=== PATIENT | female | born 1960 | race Caucasian/White ===

== ENCOUNTER 2017-08-20 00:03 | Observation (INO) | payer OTHER ==
--- NOTE | 2017-08-20 01:06 | PDOC ---
History of Present Illness - General Chief Complaint: Psychiatric Stated Complaint: ANXIETY Time Seen by Provider: 08/20/17 00:47 History Source: Patient, Parent(s) - History of Present Illness Initial Comments: 08/20/17 04:04 56-year-old female brought in by ambulance from home, patient with no eye contact and refusing to talk. Denies SI/HI. As per EMS the brother called 911 due to some disturbance. Brother was not available to talk via phone. as per parents, patient with visual and auditory hallucinations with multiple admissions to [facility]. Parents suspect that the patient has not been taking her psychiatric medications. most recent psych admission has been at [facility]. Patient appears internally preoccupied. Patient reports "I am talking to the God ". patient reports that she is only taking GAbapentin. \\ 08/20/17 04:20 Past History - Past Medical History Allergies/Adverse Reactions: Allergies Allergy/AdvReac Type Severity Reaction Status Date / Time No Known Allergies Allergy Verified 08/20/17 01:24 Home Medications: Ambulatory Orders Acetaminophen W/ Codeine #3 [Tylenol # 3] 1 combo PO Q6H #20 tablet 10/09/11 Other medical history: schizophrenia - Suicide/Smoking/Psychosocial Hx Smoking Status: No Smoking History: Never smoked Number of Cigarettes Smoked Daily: 0 Review of Systems - Review of Systems Able to Perform ROS?: Yes Is the patient limited Italian proficient: No Constitutional: No: Symptoms Reported, See HPI, Chills, Diaphoresis, Fever, Loss of Appetite, Malaise, Night Sweats, Weakness, Weight Stable, Unintentional Wgt. Loss, Unexplained wgt Loss, Other Neurological: No: Symptoms reported, See HPI, Headache, Numbness, Paresthesia, Pre-Existing Deficit, Seizure, Tingling, Tremors, Weakness, Unsteady Gait, Ataxia, Dizziness, Other Psychiatric: Yes: Sleep Pattern Change, Other (hallucination) *Physical Exam - Vital Signs 08/20/17 04:08 Last Vital Signs Temp Pulse Resp BP Pulse Ox 98.4 F 98 H 18 106/90 97 08/20/17 01:08 08/20/17 01:08 08/20/17 01:08 08/20/17 01:08 08/20/17 01:08 - Physical Exam General Appearance: Yes: Appropriately Dressed, Other (no eye contact) Respiratory/Chest: positive: Other (patient refused physical exam. ). negative : Accessory Muscle Use Integumentary: positive: Normal Color, Dry Neurologic: positive: Alert, Other (no eye contact) ED Treatment Course - LABORATORY CBC & Chemistry Diagram: 08/20/17 01:50 08/20/17 01:50 Medical Decision Making - Medical Decision Making A: psychiatric evaluation for hallucinations; schizophrenia 08/20/17 01:[address] Loo and left message for call back. 08/20/17 06:15 patient remains on 1: 1 for a brief period locked self in bathroom. security called *DC/Admit/Observation/Transfer Diagnosis at time of Disposition: Psychiatric disturbance, Hallucinations Schizoaffective disorder Qualifiers: Schizoaffective disorder type: unspecified Qualified Code(s): F25.9 - Schizoaffective disorder, unspecified - Discharge Dispostion Condition at time of disposition: Fair Decision to Admit order: Yes - Referrals - Patient Instructions - Post Discharge Activity
[2017-08-20 01:45] VITALS: BMI 24.1
[2017-08-20 02:10] LABS: BASO % 0.7 % (0-2.0); EOS % 0.3 % (0-4.5); HEMOGLOBIN 14.1 GM/dL (10.7-15.3); LYMPH % 16.5 % (8-40); MCH 31.2 pg (25.7-33.7); MCHC 34.3 g/dl (32.0-36.0); MEAN PLT VOLUME 8.8 fl (7.5-11.1); MONO % 9.7 % (3.8-10.2); NEUT % 72.8 % (42.8-82.8); PLATELET COUNT 219 K/MM3 (134-434); RBC 4.51 M/mm3 (3.60-5.2); WHITE BLOOD COUNT 6.7 K/mm3 (4.0-10.0)
[2017-08-20 02:24] LABS: INR 1.17 (0.82-1.09); PROTHROMBIN TIME (PATIENT) 13.2 SEC (9.7-13.0)
[2017-08-20 02:45] LABS: ALBUMIN 4.3 g/dl (3.4-5.0); ALK PHOS 68 U/L (45-117); ANION GAP 15 (8-16); BLOOD UREA NITROGEN 18 mg/dL (7-18); CALCIUM 9.3 mg/dL (8.5-10.1); CHLORIDE 102 mmol/L (98-107); CO2 22 mmol/L (21-32); CREATININE 0.5 mg/dL (0.55-1.02); GLUCOSE,RANDOM 89 mg/dL (74-106); SGPT/ALT 39 U/L (12-78); SODIUM 139 mmol/L (136-145)
[2017-08-20 02:46] LABS: ACETAMINOPHEN <2.0 ug/mL; POTASSIUM 3.7 mmol/L (3.5-5.1); SALICYLATE < 1.70 mg/dL; SGOT/AST 48 U/L (15-37)
[2017-08-20 05:57] LABS: URINE APPEARANCE CLEAR; URINE BILIRUBIN NEGATIVE (<2.0 mg/dL); URINE BLOOD NEGATIVE (NEGATIVE); URINE COLOR DKYELLOW; URINE GLUCOSE (UA) NEGATIVE (NEGATIVE); URINE KETONE 2+ (NEGATIVE); URINE LEUK ESTERASE TRACE (NEGATIVE); URINE NITRITE NEGATIVE (NEGATIVE)
[2017-08-20 06:09] LABS: COCAINE, UR NEGATIVE ng/ml (CUTOFF=300); METHADONE, UR NEGATIVE ng/ml (CUTOFF=300); OPIATES, URI NEGATIVE ng/ml (CUTOFF=300); PHENCYCLIDINE,URINE NEGATIVE ng/ml (CUTOFF=25); URINE AMPHETAMINES NEGATIVE ng/ml (CUTOFF=500); URINE BARBITURATES NEGATIVE ng/ml (CUTOFF=200); URINE BENZODIAZEPINES NEGATIVE ng/ml (CUTOFF=200); URINE PROTEIN 2+ (NEGATIVE)
[2017-08-20 06:21] VITALS: BP 129/71; PULSE 90; TEMP 97.5
[2017-08-20 06:28] LABS: EPI CELLS RARE /HPF (FEW); URINE MUCUS MANY
--- NOTE | 2017-08-20 09:16 | HP ---
Admitting History and Physical - Admission Chief Complaint: disturbance per brother, not taking psych meds History of Present Illness: This is a 56 year old female with pmhx of schizophrenia. Pt was diagnosed when she was 13. She states she sees white light all around her and Mik tells her when to take her medication. Per pt, she takes gabapentin, melatonin, and usol (? another sleep aid medication). She stopped taking them because they made her stomach hurt and she felt she was better. Pt states she is sad her parents do not believe in god and the bible the way she does, given they were raised as such. She would like to get . She likes to sing and work out. Pt also upset her neighbors slam doors and the building stresses her out with all the noises. She went to her therapist last Saturday but doesn't know the name of her therapist nor the address. Per father, pt has deteriorated in the last 3 weeks. She hasn't been taking her medications and she is complaint and regular with group therapy of 6 pts in [place], but he doesn't know the name. Father also states she is accusing her 80 year old mother of stealing her boyfriend, lost her money and wallet. She was disturbing the neighbors and they have complained about her. He would like her to go to [facility] where she has been seen before. Pt denies suicidal ideations, feeling of harming herself or others, no one is speaking to her. She states she is less talkative than usual. History Source: Patient, Family Member - Smoking History Smoking history: Never smoked Have you smoked in the past 12 months: No Aproximately how many cigarettes per day: 0 - Alcohol/Substance Use Hx Alcohol Use: No Home Medications - Allergies Allergies/Adverse Reactions: Allergies Allergy/AdvReac Type Severity Reaction Status Date / Time No Known Allergies Allergy Verified 08/20/17 01:24 - Home Medications Home Medications: Ambulatory Orders Unobtainable 08/20/17 Review of Systems - Review of Systems Constitutional: reports: No Symptoms Eyes: reports: No Symptoms HENT: reports: No Symptoms Neck: reports: No Symptoms Cardiovascular: reports: No Symptoms Respiratory: reports: No Symptoms Gastrointestinal: reports: Nausea Genitourinary: reports: No Symptoms Musculoskeletal: reports: No Symptoms Integumentary: reports: No Symptoms Neurological: reports: No Symptoms Endocrine: reports: No Symptoms Hematology/Lymphatic: reports: No Symptoms Psychiatric: reports: Other (speaks to mik) Physical Examination Vital Signs: Vital Signs Temperature 97.5 F L 08/20/17 06:20 Pulse Rate 90 08/20/17 06:20 Respiratory Rate 18 08/20/17 06:20 Blood Pressure 129/71 08/20/17 06:20 O2 Sat by Pulse Oximetry (%) 100 08/20/17 07:34 Constitutional: Yes: Well Nourished, No Distress Eyes: Yes: Conjunctiva Clear HENT: Yes: Atraumatic Neck: Yes: Supple Cardiovascular: Yes: Regular Rate and Rhythm, S1, S2 Respiratory: Yes: Regular, CTA Bilaterally Gastrointestinal: Yes: Normal Bowel Sounds, Soft Musculoskeletal: Yes: WNL Extremities: Yes: WNL Edema: No Neurological: Yes: Alert, Oriented, Cran Nerves II-XII Intact Psychiatric: Yes: Other (schizoeffective, sees lights, speaks to mik) Labs: CBC, BMP 08/20/17 01:50 08/20/17 01:50 Problem List - Problems (1) Hallucinations Code(s): R44.3 - HALLUCINATIONS, UNSPECIFIED (2) Psychiatric disturbance Code(s): F99 - MENTAL DISORDER, NOT OTHERWISE SPECIFIED (3) Schizoaffective disorder Code(s): F25.9 - SCHIZOAFFECTIVE DISORDER, UNSPECIFIED Qualifiers: Schizoaffective disorder type: unspecified Qualified Code(s): F25.9 - Schizoaffective disorder, unspecified Assessment/Plan Assessment: 56 year old female with schizophrenia disorder Plan: 1. Schizophrenia - Awaiting psych input - Family requests [facility] and will inquire who therapist and if she takes any psych medications, per father - Maintain 1:1, monitor for possible acute psychosis Visit type - Emergency Visit Emergency Visit: Yes ED Registration Date: 08/20/17 Care time: The patient presented to the Emergency Department on the above date and was hospitalized for further evaluation of their emergent condition. - New Patient This patient is new to me today: Yes Date on this admission: 08/20/17 - Critical Care Critical Care patient: No Hospitalist Screening - Colonoscopy Questionnaire Colonoscopy Questionnaire: Colonoscopy Questionnaire - Patient: 50 - 75 years old and never had a screening colonoscopy: Unknown History of colon or rectal polyps, or CA: Unknown History of IBD, Crohn's disease or UC: Unknown History of abdominal radiation therapy as a child: Unknown - Relative: 1 with colon or rectal CA, or polyps at age 60 or younger: Unknown Colon or rectal CA diagnosed at age 45 or younger: Unknown Multiple relatives with colon or rectal CA: Unknown - Outcome: Screening Result: Negative Screen
--- NOTE | 2017-08-20 10:52 | CON.PSY ---
Psychiatry Consult Chief Complaint: 56 year old female with a history bof Schizophrenia, chronic came to Ert . Patients parents want her Hospitalized, She is seen At [facility], wsasv seen thjere 2 wks ago. Patient denies any suicidal or Homicidal thoughts. I am Confucianism. Symptoms: reports: Hyper-religiosity - Previous Psychiatric Treatment Outpatient: Less than 6 mos ago Inpatient: 2 or more prior admissions - Previous Substance Abuse Treatment Outpatient: None Inpatient: None - Reason for Previous Treatment Reason for Previous Treatment: Psychotic Episode - Allergies Allergies: Allergies Allergy/AdvReac Type Severity Reaction Status Date / Time No Known Allergies Allergy Verified 08/20/17 01:24 - Current Living Status Usual Living Arrangement: Alone - Current Mental Status Evaluation Appearance: Well Groomed Attitude: Cooperative - Affect Affect: Flat Appropriateness: Appropriate to Content - Mood Mood: Euthymic - Speech/Language Expressive: Coherent - Psychomotor Activity Psychomotor Activity: Slowed - Thought Process Thought Process: Circumstantial - Thought Content Hallucinations: Absent Delusions: Absent - Self Perception Self Perception: No Impairment - Cognition Attention: Alert Orientation: Time Memory, Immediate Recall: Intact Memory, Short Term: 2/3 Memory, Remote with Promptin/3 - Concentration Serial Sevens Intact: No Simple Calculations Intact: No - Abstraction Proverb Interpretation: Impaired Judgement: Minimally Impaired - Insight Insight: Intact - Impulse Control Impulse Control: Good Control - Suicidal Ideation Suicidal Ideation: No - Homicidal Ideation Homicidal Ideation: No Assessment/Plan 1)Patient does not require In Patient Hospitalization at this time. 2) discahrge when medically stable. 3) follow up at [facility]. 2)
== END 2017-08-20 11:25 | disposition home or self-care (01) ==
LOC: JER 00:03 → JERBED 04:22
PROVIDERS: ADMIT Internal Medicine; ATTEND Internal Medicine
DX: F99 Mental disorder, not otherwise specified (principal); F25.9 Schizoaffective disorder, unspecified; R44.3 Hallucinations, unspecified
CPT/HCPCS: 36415; 80053; 80307; 81003; 81015; 82140; 84443; 85025; 85610; 99284-25; G0378

== ENCOUNTER → 2022-07-04 | Emergency (ER) | payer OTHER ==
[2022-07-04 13:40] VITALS: BP 102/61; PULSE 69; RESP 19; TEMP 98.6; BMI 17.7
== END | disposition left against medical advice (07) ==
LOC: JERFT 13:34
DX: Z76.0 Encounter for issue of repeat prescription (principal)
CPT/HCPCS: 99281-25

== ENCOUNTER 2022-07-09 08:54 | Emergency (ER) | payer OTHER ==
[2022-07-09 09:04] VITALS: BP 104/45; PULSE 69; RESP 18; TEMP 97.6; BMI 17.7
== END 2022-07-09 09:45 | disposition home or self-care (01) ==
LOC: JER 08:54
DX: Z76.0 Encounter for issue of repeat prescription (principal)
CPT/HCPCS: 99281-25

== ENCOUNTER → 2022-07-21 | Emergency (ER) | payer OTHER ==
[2022-07-21 17:54] VITALS: BP 130/59; PULSE 56; RESP 18; TEMP 98; BMI 17.7
== END ==
LOC: JER 17:44 → JERFT 17:44
DX: Z76.0 Encounter for issue of repeat prescription (principal)
CPT/HCPCS: 99281-25

== ENCOUNTER 2022-07-22 13:32 | Emergency (ER) | payer OTHER ==
[2022-07-22 13:39] VITALS: BP 109/61; PULSE 57; RESP 18; TEMP 98.5; BMI 17.7
== END 2022-07-22 13:47 | disposition left against medical advice (07) ==
LOC: JER 13:32 → JERFT 13:32
DX: Z76.0 Encounter for issue of repeat prescription (principal)
CPT/HCPCS: 99281-25

== ENCOUNTER 2022-07-28 14:41 | Emergency (ER) | payer OTHER ==
[2022-07-28 14:45] VITALS: BP 124/75; PULSE 68; RESP 16; TEMP 98.2; BMI 17.7
== END 2022-07-28 15:45 | disposition home or self-care (01) ==
LOC: JERFT 14:41
DX: Z76.0 Encounter for issue of repeat prescription (principal)
CPT/HCPCS: 99281-25

== ENCOUNTER 2023-04-13 18:17 | Emergency (ER) | payer OTHER ==
[2023-04-13 18:29] VITALS: BP 118/68; PULSE 58; RESP 18; TEMP 97.7; BMI 19.1
== END 2023-04-13 20:33 | disposition left against medical advice (07) ==
LOC: JER 18:17
DX: R13.10 Dysphagia, unspecified (principal); R63.0 Anorexia; R10.9 Unspecified abdominal pain
CPT/HCPCS: 99281-25